=== PATIENT | male | born 2000 | race Hispanic/Latino ===

== ENCOUNTER 2021-01-10 18:19 | Inpatient (IN) | payer SELFPAY ==
[~2021-01-10] VITALS: Ht 162.6 cm; Wt 65.8 kg
[2021-01-10 19:12] LABS: BASOPHILS % (AUTO) 0.4 % (0.0-5.0); HEMATOCRIT 37.3 % (42-54); LYMPHOCYTES % (AUTO) 37.2 % (21.0-51.0); MEAN CORPUSCULAR HGB CONC 35.1 g/dL (32.0-36.0); MEAN CORPUSCULAR VOLUME 88.2 fL (80-100); MONOCYTES % (AUTO) 7.1 % (3.0-13.0); NEUTROPHILS % (AUTO) 52.2 % (40.0-77.0); PLATELET COUNT (AUTO) 298 K/uL (130-400); RED BLOOD CELL COUNT(AUTO) 4.23 MIL/uL (4.50-6.20); RED CELL DISTRIBUTION WIDTH 13.8 % (11.0-15.5); WHITE BLOOD COUNT (AUTO) 7.8 K/uL (4.8-10.8)
[2021-01-10 19:18] LABS: APPEARANCE,URINE Clear (CLEAR); BILIRUBIN,URINE Negative (NEGATIVE); COLOR,URINE Yellow (YELLOW); GLUCOSE, URINE (UA) Negative (NEGATIVE); KETONES,URINE Trace mg/dL (NEGATIVE); LEUKOCYTE ESTERASE ,URINE Small (NEGATIVE); NITRATE,URINE Negative (NEGATIVE); OCCULT BLOOD,URINE Negative (NEGATIVE); PROTEIN,URINE Negative (NEGATIVE)
[2021-01-10 19:27] LABS: CREATININE 1.2 mg/dL (0.5-1.5); POTASSIUM 3.9 mmol/L (3.5-5.1)
[2021-01-10 19:32] LABS: BACTERIA,URINE Rare /HPF (None Seen); RBC,URINE None Seen /HPF (0-1); SQUAMOUS EPITHELIAL CELL,UR None Seen /HPF (0-2)
[2021-01-10 19:51] LABS: ALBUMIN 3.9 g/dL (3.5-5.0); BILIRUBIN,TOTAL 0.4 mg/dL (0.2-1.0); TOTAL PROTEIN, SERUM 6.7 g/dL (6.0-8.3)
[2021-01-10] MEDS ORDERED: DiphenhydrAMINE HCL 50 MG/ML VIAL ONE (20:38)
[2021-01-10] MEDS ORDERED: HALOPERIDOL INJ 5 MG/ML VIAL ONE (20:38)
[2021-01-10] MEDS ORDERED: LORAZEPAM 2 MG/ML 1 ML VIAL ONE (20:39)
[2021-01-10] MEDS ORDERED: ONDANSETRON 4MG INJ IV PRN (20:45)
[2021-01-10] MEDS ORDERED: ACETAMINOPHEN 325 MG TAB PO PRN ×2 (20:45)
[2021-01-10] MEDS ORDERED: 0.9%NACL 1000ML 1,000 ML IV SCH (20:45)
[2021-01-10] MEDS ORDERED: MAG/ALUM/SIMETH 30 ML UDCUP PO PRN (20:45)
[2021-01-10] MEDS ORDERED: LACTULOSE 20 GM/30 ML UDCUP PO PRN (20:45)
[2021-01-10] MEDS: FAMOTIDINE 20MG TAB PO SCH (21:00)
[2021-01-10] MEDS ORDERED: ZIPRASIDONE MESYLATE 20 MG/VIAL IM ONE (21:47)
[2021-01-10] MEDS ORDERED: FAMOTIDINE 20MG TAB ONE (22:19)
[2021-01-11] MEDS ORDERED: OLANZAPINE 10MG/ML 1ML VIAL IM PRN (07:30)
[2021-01-11] MEDS ORDERED: FAMOTIDINE 20MG TAB ONE (08:51)
[2021-01-11] MEDS: FAMOTIDINE 20MG TAB PO SCH ×2 (09:00→19:54)
[2021-01-11 09:19] LABS: BASOPHILS % (AUTO) 0.4 % (0.0-5.0); EOSINOPHILS % (AUTO) 1.9 % (0.0-8.0); HEMATOCRIT 40.9 % (42-54); LYMPHOCYTES % (AUTO) 36.3 % (21.0-51.0); MEAN CORPUSCULAR HEMOGLOBIN 29.9 pg (27.0-33.0); MEAN CORPUSCULAR HGB CONC 33.3 g/dL (32.0-36.0); MEAN CORPUSCULAR VOLUME 89.9 fL (80-100); MONOCYTES % (AUTO) 7.3 % (3.0-13.0); NEUTROPHILS % (AUTO) 53.8 % (40.0-77.0); PLATELET COUNT (AUTO) 329 K/uL (130-400); RED BLOOD CELL COUNT(AUTO) 4.55 MIL/uL (4.50-6.20); RED CELL DISTRIBUTION WIDTH 13.6 % (11.0-15.5); WHITE BLOOD COUNT (AUTO) 7.3 K/uL (4.8-10.8)
[2021-01-11] MEDS ORDERED: LORAZEPAM 2 MG/ML 1 ML VIAL ONE (09:29)
[2021-01-11 10:08] LABS: CREATININE 1.1 mg/dL (0.5-1.5); POTASSIUM 3.9 mmol/L (3.5-5.1)
[2021-01-11] MEDS ORDERED: 0.9% NACL 500ML IV.SOLN 500 ML IV SCH (12:45)
[2021-01-11] MEDS: OLANZAPINE 5 MG TAB PO SCH ×2 (14:31→14:42)
[2021-01-11] MEDS: LACTATED RINGERS 1000ML 1,000 ML IV SCH ×4 (14:31→23:40)
[2021-01-11] MEDS ORDERED: DiphenhydrAMINE HCL 50 MG/ML VIAL ONE (15:35)
[2021-01-11] MEDS ORDERED: OLANZAPINE 5 MG TAB PO SCH (15:50)
[2021-01-11] MEDS ORDERED: CLONAZEPAM 1MG TAB PO ONE (16:30)
[2021-01-11] MEDS: LORAZEPAM 2 MG/ML 1 ML VIAL IVP PRN ×2 (17:55→22:12)
[2021-01-11] MEDS ORDERED: CLONAZEPAM 1MG TAB ONE (19:48)
[2021-01-11] MEDS: CLONAZEPAM 1MG TAB PO SCH (19:56)
[2021-01-11 20:00] VITALS: BP 157/94
[2021-01-11] MEDS: DiphenhydrAMINE HCL 50 MG/ML VIAL IV PRN (23:34)
[2021-01-12] VITALS: BP 130/61
[2021-01-12] MEDS ORDERED: ZIPRASIDONE MESYLATE 20 MG/VIAL IM ONE (02:02)
[2021-01-12] MEDS ORDERED: HALOPERIDOL 1 MG TABLET ONE (02:05)
[2021-01-12] MEDS: HALOPERIDOL 1 MG TABLET PO SCH ×2 (02:14→05:31)
[2021-01-12 04:00] VITALS: BP 142/92
[2021-01-12] MEDS: LORAZEPAM 2 MG/ML 1 ML VIAL IVP PRN ×3 (04:50→23:37)
[2021-01-12] MEDS: LACTATED RINGERS 1000ML 1,000 ML IV SCH ×2 (05:43→22:32)
[2021-01-12 05:55] LABS: BASOPHILS % (AUTO) 0.6 % (0.0-5.0); EOSINOPHILS % (AUTO) 3.8 % (0.0-8.0); HEMATOCRIT 44.8 % (42-54); LYMPHOCYTES % (AUTO) 43.6 % (21.0-51.0); MEAN CORPUSCULAR HEMOGLOBIN 30.2 pg (27.0-33.0); MEAN CORPUSCULAR HGB CONC 33.3 g/dL (32.0-36.0); MEAN CORPUSCULAR VOLUME 90.9 fL (80-100); MONOCYTES % (AUTO) 7.7 % (3.0-13.0); NEUTROPHILS % (AUTO) 43.9 % (40.0-77.0); PLATELET COUNT (AUTO) 352 K/uL (130-400); RED BLOOD CELL COUNT(AUTO) 4.93 MIL/uL (4.50-6.20); RED CELL DISTRIBUTION WIDTH 13.9 % (11.0-15.5); WHITE BLOOD COUNT (AUTO) 5.2 K/uL (4.8-10.8)
[2021-01-12 06:13] LABS: BILIRUBIN,TOTAL 0.7 mg/dL (0.2-1.0); POTASSIUM 3.9 mmol/L (3.5-5.1)
[2021-01-12] MEDS ORDERED: [UNRECOGNIZED DRUG - OTHER] PO (08:07)
[2021-01-12] MEDS ORDERED: OLAN15TA2 PO (08:07)
[2021-01-12] MEDS ORDERED: CLON1TAB12 PO (08:07)
[2021-01-12] MEDS ORDERED: ZOLP5TAB8 PO (08:07)
[2021-01-12] MEDS ORDERED: ACET-3194 PO (08:07)
[2021-01-12] MEDS ORDERED: BENZ1LOZ83 MM (08:26)
[2021-01-12] MEDS ORDERED: CARMEX TP (08:26)
[2021-01-12] MEDS ORDERED: QUET200T30 PO (08:26)
[2021-01-12] MEDS ORDERED: LORA2TAB80 PO (08:26)
[2021-01-12] MEDS ORDERED: LOPE2CAP PO (08:26)
[2021-01-12] MEDS ORDERED: ONDA4TAB10 PO (08:26)
[2021-01-12] MEDS ORDERED: BACI1OIN7 TP (08:26)
[2021-01-12] MEDS: FAMOTIDINE 20MG TAB PO SCH ×2 (09:03→22:32)
[2021-01-12] MEDS: CLONAZEPAM 1MG TAB PO SCH ×3 (09:03→22:32)
[2021-01-12] MEDS: OLANZAPINE 5 MG TAB PO SCH (09:04)
[2021-01-12 09:16] VITALS: BP_SYST 109; BP_SYST 148; BP_DIAS 67; BP_DIAS 80
[2021-01-12] MEDS ORDERED: HALOPERIDOL INJ 5 MG/ML VIAL IM SCH ×2 (11:15→14:00)
[2021-01-12] MEDS ORDERED: LORAZEPAM 2 MG/ML 1 ML VIAL IM SCH (11:45)
[2021-01-12] MEDS: DiphenhydrAMINE HCL 50 MG/ML VIAL IV PRN (13:05)
[2021-01-12] MEDS ORDERED: DIPHENHYDRAMINE HCL 25 MG CAPSULE PO PRN (16:30)
[2021-01-12] MEDS: DiphenhydrAMINE HCL 50 MG/ML VIAL IM PRN (18:07)
[2021-01-12 19:36] LABS: AMPHET/METH SCREEN,URINE NEGATIVE (NEGATIVE); BARBITURATE SCREEN, URINE NEGATIVE (NEGATIVE); BENZODIAZEPINES SCREEN,URINE NEGATIVE (NEGATIVE); CANNABINOID SCREEN,URINE NEGATIVE (NEGATIVE); COCAINE SCREEN,URINE NEGATIVE (NEGATIVE); OPIATE SCREEN,URINE NEGATIVE (NEGATIVE); PHENCYCLIDINE SCREEN,URINE NEGATIVE (NEGATIVE)
[2021-01-12 20:00] VITALS: BP 148/68
[2021-01-12] MEDS: RISPERIDONE 1 MG TABLET PO SCH (22:32)
[2021-01-13] VITALS: BP 126/64
[2021-01-13] MEDS: DiphenhydrAMINE HCL 50 MG/ML VIAL IM PRN ×3 (01:20→11:14)
[2021-01-13] MEDS: LORAZEPAM 2 MG/ML 1 ML VIAL IVP PRN ×3 (03:53→23:09)
[2021-01-13 04:00] VITALS: BP 124/75
[2021-01-13 05:12] LABS: BASOPHILS % (AUTO) 0.6 % (0.0-5.0); EOSINOPHILS % (AUTO) 2.9 % (0.0-8.0); HEMATOCRIT 40.6 % (42-54); LYMPHOCYTES % (AUTO) 33.6 % (21.0-51.0); MEAN CORPUSCULAR HEMOGLOBIN 31.1 pg (27.0-33.0); MEAN CORPUSCULAR HGB CONC 34.5 g/dL (32.0-36.0); MEAN CORPUSCULAR VOLUME 90.2 fL (80-100); MONOCYTES % (AUTO) 7.5 % (3.0-13.0); NEUTROPHILS % (AUTO) 54.8 % (40.0-77.0); PLATELET COUNT (AUTO) 290 K/uL (130-400); RED CELL DISTRIBUTION WIDTH 13.8 % (11.0-15.5); WHITE BLOOD COUNT (AUTO) 5.5 K/uL (4.8-10.8)
[2021-01-13] MEDS: LACTATED RINGERS 1000ML 1,000 ML IV SCH ×4 (05:25→19:39)
[2021-01-13 05:51] LABS: ALBUMIN 3.7 g/dL (3.5-5.0); BILIRUBIN,TOTAL 0.6 mg/dL (0.2-1.0); POTASSIUM 3.7 mmol/L (3.5-5.1); TOTAL PROTEIN, SERUM 6.6 g/dL (6.0-8.3)
[2021-01-13 08:00] VITALS: BP 136/78
[2021-01-13] MEDS: CLONAZEPAM 1MG TAB PO SCH ×3 (08:20→20:31)
[2021-01-13] MEDS: FAMOTIDINE 20MG TAB PO SCH ×2 (08:21→20:30)
[2021-01-13] MEDS: RISPERIDONE 1 MG TABLET PO SCH ×3 (08:21→20:31)
[2021-01-13 12:01] VITALS: BP 158/54
[2021-01-13] MEDS ORDERED: RISPERIDONE 1 MG TABLET PO ONE (18:00)
[2021-01-13] MEDS: DIPHENHYDRAMINE HCL 25 MG CAPSULE PO SCH (20:30)
[2021-01-13 21:00] VITALS: BP 131/75
[2021-01-14] MEDS: LACTATED RINGERS 1000ML 1,000 ML IV SCH ×2 (00:44→06:28)
[2021-01-14 05:32] LABS: BASOPHILS % (AUTO) 0.5 % (0.0-5.0); HEMATOCRIT 43.2 % (42-54); LYMPHOCYTES % (AUTO) 51.1 % (21.0-51.0); MEAN CORPUSCULAR HEMOGLOBIN 30.1 pg (27.0-33.0); MEAN CORPUSCULAR HGB CONC 32.9 g/dL (32.0-36.0); MEAN CORPUSCULAR VOLUME 91.5 fL (80-100); MONOCYTES % (AUTO) 6.7 % (3.0-13.0); NEUTROPHILS % (AUTO) 38.2 % (40.0-77.0); PLATELET COUNT (AUTO) 336 K/uL (130-400); RED BLOOD CELL COUNT(AUTO) 4.72 MIL/uL (4.50-6.20); RED CELL DISTRIBUTION WIDTH 13.8 % (11.0-15.5); WHITE BLOOD COUNT (AUTO) 6.6 K/uL (4.8-10.8)
[2021-01-14 05:37] VITALS: BP 123/57
[2021-01-14 06:03] LABS: ALBUMIN 3.8 g/dL (3.5-5.0); BILIRUBIN,TOTAL 0.4 mg/dL (0.2-1.0); CREATININE 1.2 mg/dL (0.5-1.5); POTASSIUM 3.8 mmol/L (3.5-5.1); TOTAL PROTEIN, SERUM 6.8 g/dL (6.0-8.3)
[2021-01-14 08:00] VITALS: BP 121/65
[2021-01-14] MEDS: RISPERIDONE 1 MG TABLET PO SCH ×2 (08:27→13:14)
[2021-01-14] MEDS: FAMOTIDINE 20MG TAB PO SCH (08:28)
[2021-01-14] MEDS: DIPHENHYDRAMINE HCL 25 MG CAPSULE PO SCH ×2 (08:28→13:14)
[2021-01-14] MEDS: CLONAZEPAM 1MG TAB PO SCH ×2 (08:28→13:14)
[2021-01-14] MEDS: LORAZEPAM 2 MG/ML 1 ML VIAL IVP PRN ×2 (08:59→13:15)
[2021-01-14] MEDS ORDERED: HALOPERIDOL INJ 5 MG/ML VIAL ONE (10:56)
[2021-01-14] MEDS ORDERED: HALOPERIDOL INJ 5 MG/ML VIAL IM SCH ×2 (11:45→18:30)
[2021-01-14 12:00] VITALS: BP 124/67
[2021-01-14 16:29] VITALS: BP 149/65
[2021-01-14 18:15] LABS: THYROID STIMULATING HORMONE 1.36 uIU/mL (0.36-3.74)
[2021-01-14 19:49] VITALS: BP 112/68
[2021-01-15] MEDS: DIPHENHYDRAMINE HCL 25 MG CAPSULE PO SCH ×4 (03:09→20:29)
[2021-01-15] MEDS: CLONAZEPAM 1MG TAB PO SCH ×4 (03:09→20:28)
[2021-01-15] MEDS: RISPERIDONE 1 MG TABLET PO SCH ×4 (03:09→20:29)
[2021-01-15] MEDS: FAMOTIDINE 20MG TAB PO SCH ×3 (03:09→20:28)
[2021-01-15 04:43] VITALS: BP 113/72
[2021-01-15 07:30] VITALS: BP 109/69
[2021-01-15 20:12] VITALS: BP 135/76
[2021-01-16 00:16] VITALS: BP 123/76
[2021-01-16 04:20] VITALS: BP 131/80
[2021-01-16 06:41] LABS: BASOPHILS % (AUTO) 0.7 % (0.0-5.0); EOSINOPHILS % (AUTO) 2.6 % (0.0-8.0); HEMATOCRIT 44.3 % (42-54); LYMPHOCYTES % (AUTO) 44.8 % (21.0-51.0); MEAN CORPUSCULAR HEMOGLOBIN 30.7 pg (27.0-33.0); MEAN CORPUSCULAR VOLUME 93.3 fL (80-100); MONOCYTES % (AUTO) 8.2 % (3.0-13.0); NEUTROPHILS % (AUTO) 42.8 % (40.0-77.0); PLATELET COUNT (AUTO) 334 K/uL (130-400); RED BLOOD CELL COUNT(AUTO) 4.75 MIL/uL (4.50-6.20); RED CELL DISTRIBUTION WIDTH 13.7 % (11.0-15.5); WHITE BLOOD COUNT (AUTO) 5.8 K/uL (4.8-10.8)
[2021-01-16 06:46] LABS: POTASSIUM 4.1 mmol/L (3.5-5.1)
[2021-01-16 07:30] VITALS: BP 118/70
[2021-01-16] MEDS ORDERED: LACTATED RINGERS 1000ML 1,000 ML IV SCH (08:30)
[2021-01-16] MEDS: FAMOTIDINE 20MG TAB PO SCH (09:17)
[2021-01-16] MEDS: DIPHENHYDRAMINE HCL 25 MG CAPSULE PO SCH ×2 (09:17→13:39)
[2021-01-16] MEDS: RISPERIDONE 1 MG TABLET PO SCH ×2 (09:17→13:40)
[2021-01-16] MEDS: CLONAZEPAM 1MG TAB PO SCH ×2 (09:18→13:39)
[2021-01-16 11:00] VITALS: BP 121/70
== END 2021-01-16 16:30 | disposition home or self-care (01) | DRG 558 ==
LOC: EDH 18:19 → EDHIP 18:20 → OBSVTOIN 18:20 → 3DH 01-11 12:12
PROVIDERS: ADMIT Internal Medicine; ATTEND Internal Medicine
DX: M62.82 Rhabdomyolysis (principal); F30.2 Manic episode, severe with psychotic symptoms; Z53.20 Procedure and treatment not carried out because of patient's decision for unspecified reasons
CPT/HCPCS: 36415; 80048; 80053; 80305; 81001; 82550; 82948; 84439; 84443; 84481; 84484; 85025; 93005; G0378; J1200; J1630; J2060; J3486; J3490; J7120; Q0163